=== PATIENT | male | born 1995 | race Caucasian/White ===

== ENCOUNTER 2016-11-03 22:56 | Emergency (ER) | payer OTHER ==
[~2016-11-03] VITALS: Ht 175.3 cm; Wt 100.0 kg
[2016-11-03 22:58] VITALS: BP 168/98
[2016-11-03] MEDS ORDERED: HALCION PO (23:07)
== END 2016-11-03 23:26 | disposition left against medical advice (07) ==
LOC: EMS 22:58
DX: H57.10 Ocular pain, unspecified eye (principal); Z53.21 Procedure and treatment not carried out due to patient leaving prior to being seen by health care provider